=== PATIENT | female | born 1980 | race Caucasian/White ===

== ENCOUNTER 2023-10-07 19:00 | Emergency (ER) | payer BC, SELFPAY ==
[2023-10-07 19:15] VITALS: BP 123/86
--- NOTE | 2023-10-07 21:08 | ED.GENMED ---
History of Present Illness
General
Chief Complaint: Skin Surface Trauma
Source: patient
Exam Limitations: none
Time Seen by Provider: 10/07/23 20:36
Nursing documentation reviewed up to this point in time: agreed with
History of Present Illness
History of Present Illness:
Patient is a 43 year-old female who cut her right pinky finger on a trimmer helper prior to arrival she is right-hand dominant. She denies any other injury
Past History
Past History
ED Past Medical History: Psychiatric (Has had 'panic attacks' in the past for which she went to ER but last one was 9 years ago.)
ED Past Surgical History:
Social History
Tobacco: Former smoker
Alcohol: Occasional
Drug: None
Personal:
Living: with family
Employment: Employed
Review of Systems
Review of Systems
Allergies reviewed?: Yes
All Other Systems: ROS reviewed and negative except as documented in HPI and ROS
Constitutional: Reports no symptoms
Skin: Reports other (Finger laceration to right fifth finger)
Neurological: Reports no symptoms
Psychiatric: Reports no symptoms
Phy Exam
General Physical Exam
General Presentation: no apparent distress
General age: appears stated age
General Skin: warm and dry
General Habitus: normal
General Mental: alert
General Hydration: appears well hydrated
Neurological Exam
Neurological Exam: alert and oriented x3
Musculoskeletal Exam
Musculoskeletal Exam: full ROM and other (Right upper extremity strong pulses patient with 2 cm full-thickness laceration linear into subcutaneous tissue only no tendon deficit or no tendon visible full flexion extension no bony tenderness normal
sensation)
Skin Exam
Skin Exam: normal color and warm/dry
Psychiatric Exam
Psychiatric Exam: normal mood/affect
Course
Orders/Labs/Results
Orders:
Orders
10/07/23 21:09
Tetanus/Diphth/Acelpertussis [Adacel] 0.5 ml IM .ONCE ONE
Vital Signs
Initial and Last Documented VS:
Initial Vital Signs
Temp
99.1 F
10/07/23 19:12
Last Documented Vital Signs
Temp Pulse Resp BP Pulse Ox
99.1 F 65 19 123/86 99
10/07/23 19:12 10/07/23 19:15 10/07/23 19:15 10/07/23 19:15 10/07/23 19:15
Procedures
Laceration Closure
Right Distal First Finger:
Status of Wound: clean
Size of Wound in cm: 2
Description of Wound Edges: sharp
Preparation: cleaned with saline and other (Clean with wound cleanser in addition to saline)
Anesthesia: 1% Lidocaine and Digital-Regional
Revision/Debridement: routine- no revision
Skin Closure Material: 5-0 nylon
Number of sutures: 4
MDM/Problems Addressed
MDM/Problems Addressed:
Simple laceration to right fifth finger repaired as documented no tendon deficit. Tetanus updated. Patient was using a trimmer helper wound only to subcutaneous tissue patient is allergic to Keflex she wishes to hold off on antibiotics this is
reasonable. Wound was irrigated with copious denny normal saline. Discussed wound care and any signs of infection to return.
*Critical Care Note
Total Time (30-74mins, 75-104mins- exclusive of procedures): Not Applicable
ED Attending Note
-
Portions of this chart may have been created with voice recognition software.� Occasional wrong word or��sound alike� substitutions may have occurred due to the inherent limitations of voice recognition software.
Discharge Plan
Departure
Patient Disposition: Home (Routine Discharge)
Date of Disposition: 10/07/23
Time of Disposition: 21:09
Patient with high blood pressure during this ER visit?: No
Condition: Fair
Covid-19: Not Applicable
Discharge Problem:
Laceration
Instructions: Laceration Repair With Stitches (DC)
Prescriptions:
No Action
Vitamin Tablet
1 tab PO DAILY
oxycodone-acetaminophen 5 MG/325 MG tablet
1 tab PO Q4HPRN PRN (Reason: moderate pain) Qty: 20 0RF
ibuprofen 600 MG tablet
600 mg PO Q4HPRN PRN (Reason: cramps) 0RF
Activity Restrictions/Additional Instructions:
Keep wound clean and dry for 24 hours after 24 hours as discussed wash twice a day with soap and water pat dry and apply small layer of antibiotic open to the area. keep covered. See family doctor in 2 days as needed for wound check and sutures
are to be removed in 10-12 days. Return if any signs infection increased pain swelling redness drainage fever chills
Interventions
Interventions:
*General Assessment Last Done: 10/07/23 19:14
*ED COVID-19 Vaccine History Last Done: 10/07/23 19:14
Discharge Date and Time
Print Language: PASHTO
[2023-10-07] MEDS: ADACEL 0.5 ML IM (21:15)
== END 2023-10-07 21:19 | disposition home or self-care (01) ==
LOC: EMR 19:00
PROVIDERS: EMERGENCY PHYSICIAN Student in an Organized Health Care Education/Training Program; FAMILY PHYSICIAN Nurse Practitioner Adult Health
DX: S61.216A Laceration without foreign body of right little finger without damage to nail, initial encounter (principal); W29.3XXA Contact with powered garden and outdoor hand tools and machinery, initial encounter; Z23 Encounter for immunization; Z87.891 Personal history of nicotine dependence
CPT/HCPCS: 99282; 12001; 90471; 90715

== ENCOUNTER → 2024-08-04 09:57 | Outpatient (REF) | payer BC, SELFPAY | LOC: HWWDC 09:57 | PROVIDERS: ATTENDING PHYSICIAN Nurse Practitioner Adult Health | DX: Z12.31 Encounter for screening mammogram for malignant neoplasm of breast (principal) | CPT/HCPCS: 77063; 77067 ==

== ENCOUNTER → 2025-03-10 15:30 | Outpatient (REF) | payer BC, SELFPAY | LOC: REG 15:30 | PROVIDERS: ATTENDING PHYSICIAN Nurse Practitioner Adult Health | DX: R05.3 Chronic cough (principal) | CPT/HCPCS: 71046 ==